=== PATIENT | female | born 1990 | race Two or more races ===

== ENCOUNTER 2019-02-09 03:07 | Emergency (ER) | payer SELFPAY ==
[~2019-02-09] VITALS: Ht 160 cm; Wt 52.2 kg
[2019-02-09 03:17] VITALS: BP 93/55
--- NOTE | 2019-02-09 03:19 | NUR ---
ED Nurse Note: PT AMBULATED TO ED C/O SORE THROAT FOR 3 DAYS. NO FEVER AT TRIAGE. PT STATES SHE TOOK X2 ADVIL 2 HOURS AGO. REPORTS PAIN AT 4/10
[2019-02-09] MEDS ORDERED: ZITHROMAX250 MG ORAL (03:25)
--- NOTE | 2019-02-09 03:25 | Emergency Room Report ---
History of Present Illness General Chief Complaint: Sore Throat Source: Patient Present Illness HPI 28-year-old female with no past medical history patient presents with complaint of sore throat and ear pain. Onset for last 3 days. Low-grade fever subjectively. Worse with swallowing. Better with [id number] ibuprofen. No cough or congestion. No runny nose. No Drooling. Pain is 7 out of 10. Allergies: Coded Allergies: No Known Allergies (Unverified , 02/09/19) Patient History Past Medical History: see triage record, old chart reviewed Past Surgical History: none Pertinent Family History: none Social History: Denies: smoking Last Menstrual Period: 01/22/19 Now: No : 0 Immunizations: other Reviewed Nursing Documentation: PMH: Agreed; PSxH: Agreed Nursing Documentation-PMH Past Medical History: No Stated History Review of Systems Eye: Denies: eye pain, blurred vision ENT: Reports: throat pain, throat swelling; Denies: ear pain, nose congestion Respiratory: Denies: cough, shortness of breath Cardiovascular: Denies: chest pain, palpitations Gastrointestinal: Denies: abdominal pain, diarrhea, nausea, vomiting Musculoskeletal: Denies: back pain, joint pain Skin: Denies: rash Neurological: Denies: headache, numbness Endocrine: Denies: increased thirst, increased urine Hematologic/Lymphatic: Denies: easy bruising All Other Systems: negative except mentioned in HPI Physical Exam Vital Signs Date Time Temp Pulse Resp B/P (MAP) Pulse Ox O2 Delivery O2 Flow Rate FiO2 02/09/19 03:11 98.2 102 18 93/55 (68) 98 Room Air Vitals normal Sp02 EP Interpretation: reviewed, normal General Appearance: well appearing, no apparent distress, alert Head: normocephalic, atraumatic Eyes: bilateral eye PERRL, bilateral eye EOMI ENT: hearing grossly normal, tonsillar swelling, pharyngeal erythema, tonsillar exudate Neck: full range of motion, supple, no meningismus Respiratory: chest non-tender, lungs clear, normal breath sounds Cardiovascular #1: regular rate, rhythm, no murmur Gastrointestinal: normal bowel sounds, non tender, no mass, no organomegaly, no bruit, non-distended Musculoskeletal: back normal, gait/station normal, normal range of motion Psychiatric: mood/affect normal Medical Decision Making Diagnostic Impression: Primary Impression: Acute tonsillitis Qualified Codes: J03.90 - Acute tonsillitis, unspecified ER Course This patient presents with acute tonsillitis with exudates. Most likely strep. No evidence of peritonsillar abscess, retropharyngeal abscess or Jose Elias angina. Will discharge home. Last Vital Signs Date Time Temp Pulse Resp B/P (MAP) Pulse Ox O2 Delivery O2 Flow Rate FiO2 02/09/19 03:17 98.2 102 18 93/55 98 Room Air Status: improved Disposition: HOME, SELF-CARE Condition: Stable Scripts Azithromycin* (ZITHROMAX*) 250 Mg Tablet 250 MG ORAL DAILY, #6 TAB 0 Refills Take two tables once daily for 1 day, then one tablet once daily for 4 days. Prov: Kannan Skelton MD 02/09/19 Patient Instructions: Strep Throat Additional Instructions: Increase fluids. Salt water gargle. Follow-up with your doctor in 5 to 7 days. Return if symptoms worsen. Kannan Skelton MD Feb 09, 2019 03:25
[2019-02-09 03:26] VITALS: BP 96/53
--- NOTE | 2019-02-09 03:27 | NUR ---
ER DISCHARGE NOTE: Patient is cleared to be discharged per ERMD, pt is aox4, on room air, with stable vital signs. pt was given dc and prescription instructions, pt was able to verbalize understanding, pt id band removed. pt is able to ambulate with steady gait. pt took all belongings.
== END 2019-02-09 03:27 | disposition home or self-care (01) ==
LOC: EMR 03:25
DX: J03.90 Acute tonsillitis, unspecified (principal)
CPT/HCPCS: 99282; J7512